=== PATIENT | female | born 1950 | race Two or more races ===

== ENCOUNTER 2024-06-03 13:19 | Inpatient (IN) | payer OTHER ==
[~2024-06-03] VITALS: Ht 157.5 cm; Wt 113.7 kg
--- NOTE | 2024-06-03 13:47 | ED.PDOC ---
History of Present Illness HPI Comments 74 y/o morbidly obese F, with a Hx of HLD, HTN, and kidney stones, presents with c/o right-flank pain and hematuria, today. Patient reports receiving a call from her PCP, advising her to go to the ED after endorsing on sudden and unprovoked onset of pain, this morning. Patient comments on having hematuria for the past 3x months, with inconclusive findings on underlying cause with current outpatient workup. She reports no further relevant information, such as recent injuries, sick contact, or travel, with exception to FMHx of stroke and Hodgkin's. Patient denies any nausea, vomiting, fever, chills, or other associated symptoms or modifiers at this time. Time Seen by MD: 13:30 Reviewed Notes: Nurses Notes, Medications, Allergies Allergies: Uncoded Allergies: IV CONTRAST (Allergy, Unknown, 06/03/24) Information Source: Patient Mode of Arrival: Ambulatory Severity: Moderate Timing: Hours Duration: Since onset Prehospital treatment: None Past Medical History PAST MEDICAL HISTORY: High Lipids, HTN, Kidney Stones Past Medical History (Other): morbid obesity Surgical History (Other): kidney stones removal surgerical proceedure SERVICE COORDINATOR History: Denies all SERVICE COORDINATOR Hx Family History Family History: Reviewed,noncontributory to illness, No family hx of DM, No family hx of Heart conchis, No family hx of HTN, No family hx ofKidney conchis, No family hx of Liver conchis, No family hx of Lung conchis, Family hx of Cancer (Hodgkin's), Family hx of stroke Social History Smoker: Non-Smoker Alcohol: Denies ETOH Use Drugs: Denies Drug Use Lives In: Home Constitutional: denies: chills, diaphoresis, fatigue, fever, malaise, sweats, weakness, others EENTM: denies: blurred vision, double vision, ear bleeding, ear discharge, ear drainage, ear pain, ear ringing, eye pain, eye redness, hearing loss, mouth pain, mouth swelling, nasal discharge, nose bleeding, nose congestion, nose pain, photophobia, tearing, throat pain, throat swelling, voice changes, others Respiratory: denies: cough, hemoptysis, orthopnea, SOB at rest, shortness of breath, SOB with excertion, stridor, wheezing, others Cardiovascular: denies: chest pain, dizzy spells, diaphoresis, Dyspnea on exertion, edema, irregular heart beat, left arm pain, lightheadedness, palpitations, PND, syncope, others Gastrointestinal: denies: abdomen distended, abdominal pain, blood streaked bowels, constipated, diarrhea, dysphagia, difficulty swallowing, hematemesis, melena, nausea, poor appetite, poor fluid intake, rectal bleeding, rectal pain, vomiting, others Genitourinary: reports: flank pain, hematuria; denies: abnormal vagina bleeding, burning, dyspareunia, dysuria, frequency, incontinence, pain, , vagina discharge, urgency, others Neurological: denies: dizziness, fainting, headache, left sided numbness, left sided weakness, numbness, paresthesia, pre-existing deficit, right sided numbness, right sided weakness, seizure, speech problems, tingling, tremors, weakness, others Musculoskeletal: denies: back pain, gout, joint pain, joint swelling, muscle pain, muscle stiffness, neck pain, others Integumetry: denies: bruises, change in color, change in hair/nails, dryness, laceration, lesions, lumps, rash, wounds, others Allergic/Immunocompromised: denies: Difficulty Healing, Frequent Infections, Hives, Itching, others Hematologic/Lymphatic: denies: anemia, blood clots, easy bleeding, easy bruising, swollen glands, others Endocrine: denies: excessive hunger, excessive sweating, excessive thirst, excessive urination, flushing, intolerance to cold, intolerance to heat, unexplained weight gain, unexplained weight loss, others Psychiatric: denies: anxiety, bipolar disorder, depression, hopeless, panic disorder, schizophrenia, sleepless, suicidal, others All Other Systems: Reviewed and Negative Physical Exam General Appearance: Moderate Distress HEENT: Normal ENT Inspection, Pharynx Normal, TMs Normal Neck: Full Range of Motion, Non-Tender, Normal, Normal Inspection Respiratory: Chest Non-Tender, Lungs Clear, No Accessory Muscle Use, No Respiratory Distress, Normal Breath Sounds Cardiovascular: No Edema, No JVD, No Murmur, No Gallop, Normal Peripheral Pulses, Regular Rate/Rhythm Breast Exam: Deferred Gastrointestinal: No Organomegaly, Non Tender, No Pulsatile Mass, Normal Bowel Sounds, Soft Genitalia: Deferred Pelvic: Deferred Rectal: Deferred Extremities: No calf tenderness, Normal capillary refill, Normal inspection, Normal range of motion, Non-tender, No pedal edema Musculoskeletal : Location: Left Extremity Location: Back Apperance: Tenderness: Moderate Neurologic: Alert, casino floor runner II-XII nml as Tested, No Motor Deficits, Normal Affect, Normal Mood, No Sensory Deficits Cerebellar Function: Normal Reflexes: Normal Skin: Dry, Normal Color, Warm Lymphatic: No Adenopathy Was a procedure done? Was a procedure done?: No Differential Dx Considerations may include: Nephrolithiasis, pyelonephritis, cystitis, musculoskeletal pain, cholelithiasis, cholecystitis, ovarian cysts, ovarian torsion, among others X-Ray, Labs, Meds, VS Vital Signs Date Time Temp Pulse Resp B/P (MAP) Pulse Ox O2 Delivery O2 Flow Rate FiO2 06/03/24 13:25 98.3 91 20 118/52 (74) 94 98.3 Lab Test 06/03/24 14:05 06/03/24 13:34 Range/Units White Blood Count 9.9 4.4-10.8 10^3/uL Red Blood Count 5.08 4.0-5.20 10^6/uL Hemoglobin 15.7 12.2-16.2 g/dL Hematocrit 46.1 H 36.0-46.0 % Mean Corpuscular Volume 90.8 80.0-100.0 fL Mean Corpuscular Hemoglobin 30.9 28.0-32.0 pg Mean Corpuscular Hemoglobin Concent 34.0 32.0-36.0 g/dL Red Cell Distribution Width 13.3 11.8-14.3 % Platelet Count 352 140-450 10^3/uL Mean Platelet Volume 7.5 6.9-10.8 fL Neutrophils (%) (Auto) 50.0 37.0-80.0 % Lymphocytes (%) (Auto) 34.9 10.0-50.0 % Monocytes (%) (Auto) 9.8 0.0-12.0 % Eosinophils (%) (Auto) 4.2 0.0-7.0 % Basophils (%) (Auto) 1.1 0.0-2.0 % Neutrophils # (Auto) 4.9 1.6-8.6 10 ^3/uL Lymphocytes # (Auto) 3.4 0.4-5.4 10 ^3/uL Monocytes # (Auto) 1.0 0-1.3 10 ^3/uL Eosinophils # (Auto) 0.4 0-0.8 10 ^3/uL Basophils # (Auto) 0.1 0-0.2 10 ^3/uL Nucleated Red Blood Cells 0.0 % Sodium Level 140 136-145 mmol/L Potassium Level 4.4 3.5-5.1 mmol/L Chloride Level 102 98-107 mmol/L Carbon Dioxide Level 28 20-31 mmol/L Anion Gap 10 5-15 Blood Urea Nitrogen 33 H 9-23 mg/dL Creatinine 1.51 H 0.550-1.02 mg/dL Glomerular Filtration Rate Calc 37 >90 mL/min BUN/Creatinine Ratio 21.9 H 10.0-20.0 Serum Glucose 108 H 74-106 mg/dL Calcium Level 11.1 H 8.7-10.4 mg/dL Urine Color Light-orange Yellow Urine Clarity Turbid H Clear Urine pH 5.5 5.0-9.0 Urine Specific [place] 1.022 1.001-1.035 Urine Protein 1+ H Negative Urine Ketones Negative Negative Urine Blood 3+ H Negative /uL Urine Nitrite Negative Negative Urine Bilirubin Negative Negative Urine Urobilinogen Normal Negative mg/dL Urine Leukocyte Esterase 2+ Negative /uL Urine RBC 924 0 - 4 /hpf Urine Microscopic WBC 50 H 0-5 /HPF Urine Squamous Epithelial Cells Few <5 /hpf Urine Bacteria None seen None Seen /hpf Urine Mucus Few None Seen Urine Glucose Normal Normal mg/dL IV Hep-Lock was established The patient was being given a bolus of normal saline at 1 L The urine test is positive for blood as well as a UTI The patient will be started on Rocephin 1 g IV piggyback for the infection The patient was given medication IV for the kidney stones as well The CBC and chemistry panel are within normal limits except for the BUN of 33 and the creatinine of 1.51 A urology consult will be obtained The patient understands and agrees with the management We will continue to give the patient medication for any intractable pain Images Reviewed?: Images reviewed and evaluated by me Time of 1ST Reevaluation: 14:00 Reevaluation 1ST: Unchanged Time of 2ND Reevaluation: 17:56 Reevaluation 2ND: Improved Patient Education/Counseling: Diagnosis, Treatment, Prognosis Family Education/Counseling: No Family Present Departure 1 Departure Time of Disposition: 17:55 Impression: Primary Impression: Nephrolithiasis Additional Impression: Acute pyelonephritis Disposition: 09 ADMITTED INPATIENT Admit to: Med Surg Condition: Fair Critical Care Note Critical Care Time?: No Stability Stability form required: Yes Unstable for transfer: ED Physician Assesment (Clinical assesment) Heart Score Heart Score: Heart Score Response (Comments) Value History N/A 0 EKG N/A 0 Age N/A 0 Risk Factors N/A 0 Troponin N/A 0 Total 0 I personally scribed for CHARITY GRISSOM MD ([email or web address]) on 06/03/24 at 13:47. Electronically submitted by Je Taylor ([email or web address]). CHARITY GRISSOM MD Jun 03, 2024 13:47
--- NOTE | 2024-06-03 14:22 | DVH ---
Exam: CT CT AB PEL WO CON-NO ORAL OR IV History: right flank pain Comparison Study: None available at time of dictation. TECHNIQUE: Multidetector CT of the abdomen and pelvis without IV contrast. Axial, coronal and sagitta l multiplanar reformats were obtained from the axial data set by the technologist. Radiation Dose Information: CT Dose: CTDI volume is 27.16 mGy. Dose-length product is 1507.29 mGy*cm FINDINGS: Bibasilar atelectasis. Partially visualized heart is unremarkable. Mild hepatomegaly. Spleen, pancreas and right adrenal glands unremarkable. 2.7 cm left adrenal nodule measuring up to 18 Hounsfield units. Status post cholecystectomy. Multiple nonobstructing bilateral renal calculi, largest on the left of the lower pole measuring up t o 1 cm and largest on the right of the pelvis measuring up to 1.8 cm. Mild fat stranding adjacent to the right renal pelvis. Ureters and urinary bladder unremarkable. Uterus and adnexa unremarkable. Stomach is unremarkable. Small bowel loops are unremarkable. Appendix is not definitely visualized. N o pericecal inflammatory reaction to suggest acute appendicitis. Mild rectal wall thickening. Otherw ise, the large bowel is unremarkable. No evidence of intraperitoneal free air or free fluid. No evidence of aortic aneurysm. [id number] atherosclerotic calcification of the aorta and bilat eral iliacs. No significant lymphadenopathy. Soft tissues are unremarkable. Destructive osseous lesions are noted. IMPRESSION: Multiple bilateral nonobstructing calculus largest on the right over the renal pelvis measuring up to 1.8 cm. Mild fat stranding adjacent to the right renal pelvis which may be associated with the calcu ronda. Correlate for possible infectious process. No hydro nephrosis or obstructing ureteral calculus bilaterally. Mild rectal wall thickening which may be due to inadequate distention with mild proctitis not exclude d. Mild hepatomegaly. 2.7 cm left adrenal nodule. Adrenal protocol CT / MRI should be considered for further evaluation.
[2024-06-03 14:23] LABS: Basophils # (auto) 0.1 10 ^3/uL (0-0.2); Basophils % (auto) 1.1 % (0.0-2.0); Eosinophils # (auto) 0.4 10 ^3/uL (0-0.8); Eosinophils % (auto) 4.2 % (0.0-7.0); Hematocrit 46.1 % (36.0-46.0); Hemoglobin 15.7 g/dL (12.2-16.2); Lymphocytes # (auto) 3.4 10 ^3/uL (0.4-5.4); Lymphocytes % (auto) 34.9 % (10.0-50.0); Mean Corpuscular Hemoglobin 30.9 pg (28.0-32.0); Mean Corpuscular Volume 90.8 fL (80.0-100.0); Monocytes % (auto) 9.8 % (0.0-12.0); Neutrophils # (auto) 4.9 10 ^3/uL (1.6-8.6); Platelet Count (auto) 352 10^3/uL (140-450); Red Blood Cells 5.08 10^6/uL (4.0-5.20); Red Cell Distribution Width 13.3 % (11.8-14.3); White Blood Cell 9.9 10^3/uL (4.4-10.8)
[2024-06-03 14:37] LABS: Chloride 102 mmol/L (98-107); Potassium 4.4 mmol/L (3.5-5.1); Sodium 140 mmol/L (136-145)
[2024-06-03 14:38] LABS: Anion Gap 10 (5-15); Carbon Dioxide 28 mmol/L (20-31)
[2024-06-03 14:40] LABS: Calcium 11.1 mg/dL (8.7-10.4)
[2024-06-03 14:43] LABS: BUN/Creatinine Ratio 21.9 (10.0-20.0)
[2024-06-03 14:44] LABS: Blood Urea Nitrogen 33 mg/dL (9-23); Glucose 108 mg/dL (74-106)
[2024-06-03 15:26] LABS: Urine Bacteria None Seen /hpf (None Seen)
[2024-06-03 15:43] LABS: Urine Blood 3+ /uL (Negative); Urine Clarity Turbid (Clear); Urine Color Light-Orange (Yellow); Urine Mucus FEW (None Seen); Urine Protein, UAD 1+ (Negative); Urine Specific Gravity 1.022 (1.001-1.035); Urine Squamous Epithelial Cell FEW /hpf (<5); Urine Urobilinogen Normal (Negative); Urine WBC 50 /HPF (0-5); Urine pH 5.5 (5.0-9.0)
[2024-06-03 21:56] LABS: Total Protein 7.7 g/dL (5.7-8.2)
[2024-06-03 21:57] LABS: Bilirubin, Direct 0.2 mg/dL (<0.3); Bilirubin, Total 0.6 mg/dL (0.2-1.0)
[2024-06-03 22:01] LABS: Albumin 4.9 g/dL (3.2-4.8)
--- NOTE | 2024-06-03 22:03 | DVHHPRES ---
History of Present Illness Resident Creating Document: GATO SMITH RESIDENT History of Present Illness Patient is a 74-year-old female with past medical history of hypertension, dyslipidemia, nephrolithiasis, sciatica, depression, who came in due to flank pain and hematuria. According to the patient, for the past 4 months she has been experiencing right-sided flank pain along with visible hematuria. Patient notes that she saw her PCP on Monday where she completed lab work, on video appointment with her PCP today she was told to come to the ER as her kidney numbers were out of range. Patient notes that she frequently takes ibuprofen and Aleve 200 mg at home, every 5-6 hours for the last 4-6 months. On review of systems patient is complaining of fatigue, nausea and urinary frequency. CT abdomen pelvis showed multiple bilateral nonobstructing calculus, largest on the right side 1.8 cm along with mild fat stranding on the right side. Patient was also noted to have a 2.7 cm left adrenal nodule. Past Medical History Hypertension, dyslipidemia, sciatica, depression, nephrolithiasis Past Surgical History Cholecystectomy, appendectomy, lithotripsy Smoke: No ALCOHOL: none Drugs: None Past Social History Allergies: Codeine, IV contrast/dyes Review of Systems Constitutional: Yes: Malaise; No: Fever, Chills, Sweats, Weakness, Other Eyes: No: Pain, Vision change, Conjunctivae inflammation, Eyelid inflammation, Other, Redness ENT: No: Ear pain, Ear discharge, Nose pain, Nose discharge, Nose congestion, Mouth pain, Mouth swelling, Throat pain, Throat swelling, Other Respiratory: No: Cough, Dry, Shortness of breath, SOB with excertion, Wheezing, Hemoptysis, Pleuritic Pain, Sputum, Wheezing, Other Cardiovascular: No: Chest Pain, Palpitations, Orthopnea, Paroxysmal Noc. Dyspnea, Edema, Lt Headedness, Other Gastrointestinal: Nausea; No: Vomiting, Abdominal Pain, Diarrhea, Constipation, Melena, Hematochezia, Other Genitourinary: No Dysuria; Frequency; No Incontinence, No Hematuria, No Retention, No Other Musculoskeletal: No: other, neck pain, shoulder pain, arm pain, back pain, hand pain, leg pain, foot pain Skin: No: Rash, Lesions, Jaundice, Bruising, Other Neurological: No: Weakness, Numbness, Incoordination, Change in speech, Confusion, Seizures, Other Allergies: Uncoded Allergies: IV CONTRAST (Allergy, Unknown, 06/03/24) Exam Vital Signs Vital Signs Date Time Temp Pulse Resp B/P (MAP) Pulse Ox O2 Delivery O2 Flow Rate FiO2 06/03/24 13:25 98.3 91 20 118/52 (74) 94 98.3 General Appearance: Alert, Oriented X3, Cooperative, mild distress HEENT: Atraumatic, PERRLA, EOMI, Other (Dry mucous membrane) Respiratory: Clear to auscultation, Normal air movement Cardiovascular: Regular rate, Normal S1, Normal S2 Abdominal: Normal bowel sounds, Other (Right-sided costovertebral angle tenderness to palpation) Extremities: No clubbing, Normal pulses Skin: No significant lesion Neuro: Normal speech Psych/Mental Status: Mental status NL, Mood NL Labs/Xrays Labs Test 06/03/24 14:05 06/03/24 13:34 Range/Units White Blood Count 9.9 4.4-10.8 10^3/uL Red Blood Count 5.08 4.0-5.20 10^6/uL Hemoglobin 15.7 12.2-16.2 g/dL Hematocrit 46.1 H 36.0-46.0 % Mean Corpuscular Volume 90.8 80.0-100.0 fL Mean Corpuscular Hemoglobin 30.9 28.0-32.0 pg Mean Corpuscular Hemoglobin Concent 34.0 32.0-36.0 g/dL Red Cell Distribution Width 13.3 11.8-14.3 % Platelet Count 352 140-450 10^3/uL Mean Platelet Volume 7.5 6.9-10.8 fL Neutrophils (%) (Auto) 50.0 37.0-80.0 % Lymphocytes (%) (Auto) 34.9 10.0-50.0 % Monocytes (%) (Auto) 9.8 0.0-12.0 % Eosinophils (%) (Auto) 4.2 0.0-7.0 % Basophils (%) (Auto) 1.1 0.0-2.0 % Neutrophils # (Auto) 4.9 1.6-8.6 10 ^3/uL Lymphocytes # (Auto) 3.4 0.4-5.4 10 ^3/uL Monocytes # (Auto) 1.0 0-1.3 10 ^3/uL Eosinophils # (Auto) 0.4 0-0.8 10 ^3/uL Basophils # (Auto) 0.1 0-0.2 10 ^3/uL Nucleated Red Blood Cells 0.0 % Sodium Level 140 136-145 mmol/L Potassium Level 4.4 3.5-5.1 mmol/L Chloride Level 102 98-107 mmol/L Carbon Dioxide Level 28 20-31 mmol/L Anion Gap 10 5-15 Blood Urea Nitrogen 33 H 9-23 mg/dL Creatinine 1.51 H 0.550-1.02 mg/dL Glomerular Filtration Rate Calc 37 >90 mL/min BUN/Creatinine Ratio 21.9 H 10.0-20.0 Serum Glucose 108 H 74-106 mg/dL Calcium Level 11.1 H 8.7-10.4 mg/dL Total Bilirubin 0.6 0.2-1.0 mg/dL Direct Bilirubin 0.2 <0.3 mg/dL Aspartate Amino Transferase (AST) 26 13-40 U/L Alanine Aminotransferase (ALT) 25 7-40 U/L Alkaline Phosphatase 69 46-116 U/L Total Protein 7.7 5.7-8.2 g/dL Albumin 4.9 H 3.2-4.8 g/dL Urine Color Light-orange Yellow Urine Clarity Turbid H Clear Urine pH 5.5 5.0-9.0 Urine Specific [place] 1.022 1.001-1.035 Urine Protein 1+ H Negative Urine Ketones Negative Negative Urine Blood 3+ H Negative /uL Urine Nitrite Negative Negative Urine Bilirubin Negative Negative Urine Urobilinogen Normal Negative mg/dL Urine Leukocyte Esterase 2+ Negative /uL Urine RBC 924 0 - 4 /hpf Urine Microscopic WBC 50 H 0-5 /HPF Urine Squamous Epithelial Cells Few <5 /hpf Urine Bacteria None seen None Seen /hpf Urine Mucus Few None Seen Urine Glucose Normal Normal mg/dL Assessment/Plan Assessment/Plan Acute pyelonephritis Nephrolithiasis with largest calculus on the right side 1.8 cm Multiple bilateral nonobstructing calculus Acute complicated UTI - CT abdomen pelvis: Multiple bilateral nonobstructing calculus largest on the right over the renal pelvis measuring up to 1.8 cm. Mild fat stranding adjacent to the right renal pelvis which may be associated with the calculus. Correlate for possible infectious process. No hydro nephrosis or obstructing ureteral calculus bilaterally. Mild rectal wall thickening which may be due to inadequate distention with mild proctitis not excluded. Mild hepatomegaly. 2.7 cm left adrenal nodule. Adrenal protocol CT / MRI should be considered for further evaluation. - renal ultrasound: Possible left renal atrophy. There are bilateral renal stones. There are 2 stones in the right kidney and a stone in the inferior pole of the left kidney. 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 Velasquez Plan discussed with: Patient, Other (RN) My Orders Orders - GATO SMITH RESIDENT Procedure Category Date Status Time Admit ADMIT 06/03/24 Transmitted 20:45 Allergies KELLY 06/03/24 Transmitted 20:45 Code Status CODE 06/03/24 Transmitted 20:45 Ondansetron Hcl PHA 06/03/24 Transmitted (Zofran) 20:45 Complete Blood Count LAB 06/04/24 Verified 04:00 Comprehensive LAB 06/04/24 Verified Metabolic Panel 04:00 Cardiac DIET 06/04/24 Transmitted Diet-2gna,Lofat,Lochol Breakfast Condition: Unstable KELLY 06/03/24 Transmitted 20:45 Sequential KELLY 06/03/24 Transmitted Compression Device Notify Md Of Changes KELLY 06/03/24 Transmitted From Base 20:45 NS PHA 06/03/24 Transmitted 20:45 Tamsulosin PHA 06/04/24 Transmitted Hydrochloride (Flomax) 18:00 Tamsulosin PHA 06/03/24 Transmitted Hydrochloride (Flomax) 20:45 Ceftriaxone Ivpb PHA 06/04/24 Transmitted Rocephin 09:00 Thyroid Stimulating LAB 06/03/24 Transmitted Hormone 20:45 Electrocardigram EKG 06/03/24 Transmitted 20:45 Drug Screen LAB 06/03/24 Transmitted 20:45 Vitamin B12 LAB 06/03/24 Transmitted 20:45 Prothrombin Time W/ LAB 06/03/24 Transmitted INR 20:45 Kidney US 06/03/24 Transmitted 20:45 Urine Protein LAB 06/03/24 Transmitted 20:45 Urine Creatinine LAB 06/03/24 Transmitted 20:45 Date of Service: Jun 03, 2024 Billing Provider: MONICA VELASQUEZ MD Common Visit Codes: 82319-IBHGABU INP/OBS CARE (HIGH) Secondary Visit Codes: 99693-OFTPNJGL CARE PLAN 30 MINUTES GATO SMITH RESIDENT Jun 03, 2024 22:03 MONICA VELASQUEZ MD Jun 04, 2024 10:32
[2024-06-03 22:40] LABS: Protein, Urine 159.6 mg/dL (1-14)
--- NOTE | 2024-06-03 22:53 | DVH ---
INDICATION: nephrolithiasis TECHNIQUE: Multiple real-time sonographic images of the kidneys and bladder were obtained. COMPARISON: None FINDINGS: There is a 1.05 x 1.05 x 0.65 cm stone in the inferior pole collecting system of the right kidney. Th ere is an interpolar stone measuring 0.65 x 0.75 x 0.5 cm in the right kidney. In the inferior pole of the left kidney there is a 0.75 by 0.6 x 0.3 cm inferior pole stone. Bladder has a volume of 26.4 mL. Right kidney measures 11.5 cm in length left kidney measures 10.2 cm in length. Kidneys both appear t o have atrophied cortices. Left renal cortex measures 9.9 mm and right renal cortex measures 19.5 mm IMPRESSION: 1. Possible left renal atrophy. There are bilateral renal stones . There are 2 stones in the right k idney and a stone in the inferior pole of the left kidney.
[2024-06-03 23:04] LABS: Creatinine, Urine 243.8 mg/dL (30.0-125.0)
[2024-06-03 23:07] LABS: INR 1.03 (0.9-1.15); Prothrombin Time 10.9 sec (9.3-11.8)
[2024-06-03 23:10] LABS: Amphetamine Screen, Urine Neg (NEGATIVE); Barbiturate Scree,Urine Neg (NEGATIVE); Benzodiazephine Screen, Urine Neg (NEGATIVE); Cannabinoid Screen, Urine Neg (NEGATIVE); Cocaine Screen, Urine Neg (NEGATIVE); Opiate Scree,Urine Neg (NEGATIVE); Phencyclidine Screen, Urine Neg (NEGATIVE)
[2024-06-03] MEDS: KETOROLAC TROMETH 30 MG/ML 1ML VIAL IV ONE (23:39)
[2024-06-03] MEDS: SODIUM CHLORIDE 0.9% 1,000 ML IV ONE (23:39)
[2024-06-03] MEDS: cefTRIAXone 1GM/50ML D5W 50 ML IV ONE (23:39)
[2024-06-03] MEDS: TAMSULOSIN HYDROCHLORIDE 0.4 MG CAP PO ONE (23:40)
[2024-06-03] MEDS: SODIUM CHLORIDE 0.9% 500 ML IV ONE (23:40)
[2024-06-04 07:51] VITALS: PULSE 101; RESP 16; O2SAT 94
[2024-06-04] MEDS: MORPHINE SULFATE INJ 2 MG/ml SYRG IV PRN (07:55)
[2024-06-04] MEDS: ONDANSETRON HCL 4 MG/2 ML VIAL IV PRN (07:55)
[2024-06-04 09:16] LABS: Alanine Aminotransferase 24 U/L (7-40); Alkaline Phosphatase 69 U/L (46-116); Anion Gap 11 (5-15); Aspartate Aminotransferase 30 U/L (13-40); BUN/Creatinine Ratio 18.9 (10.0-20.0); Calcium 10.1 mg/dL (8.7-10.4); Carbon Dioxide 26 mmol/L (20-31); Chloride 105 mmol/L (98-107); Potassium 3.8 mmol/L (3.5-5.1); Sodium 142 mmol/L (136-145); Total Protein 7.9 g/dL (5.7-8.2)
[2024-06-04 09:17] LABS: Bilirubin, Total 0.4 mg/dL (0.2-1.0)
[2024-06-04 09:18] LABS: Basophils # (auto) 0.1 10 ^3/uL (0-0.2); Basophils % (auto) 0.9 % (0.0-2.0); Eosinophils # (auto) 0.3 10 ^3/uL (0-0.8); Eosinophils % (auto) 2.6 % (0.0-7.0); Hematocrit 43.9 % (36.0-46.0); Hemoglobin 14.8 g/dL (12.2-16.2); Lymphocytes # (auto) 2.9 10 ^3/uL (0.4-5.4); Lymphocytes % (auto) 24.9 % (10.0-50.0); Mean Corpuscular Hgb Conc. 33.8 g/dL (32.0-36.0); Mean Corpuscular Volume 91.7 fL (80.0-100.0); Monocytes # (auto) 1.1 10 ^3/uL (0-1.3); Monocytes % (auto) 9.4 % (0.0-12.0); Neutrophils # (auto) 7.2 10 ^3/uL (1.6-8.6); Neutrophils % (auto) 62.2 % (37.0-80.0); Nucleated Red Blood Cells % 0.3 %; Platelet Count (auto) 337 10^3/uL (140-450); Red Blood Cells 4.78 10^6/uL (4.0-5.20); Red Cell Distribution Width 13.9 % (11.8-14.3); White Blood Cell 11.6 10^3/uL (4.4-10.8)
[2024-06-04] MEDS: cefTRIAXone 1GM/50ML D5W 50 ML IV SCH (09:20)
[2024-06-04 09:28] LABS: Blood Urea Nitrogen 35 mg/dL (9-23); Glucose 130 mg/dL (74-106)
--- NOTE | 2024-06-04 10:20 | DVHPNRES ---
Progress Note Date Seen: Jun 04, 2024 Resident Creating Document: GIO WHYTE RESIDENT Medical Necessity Reason Pt with a Central, PICC or Fol: No Subjective Review of Systems Patient is a 74-year-old female with past medical history of hypertension, dyslipidemia, nephrolithiasis, sciatica, depression, who came in due to flank pain and hematuria. According to the patient, for the past 4 months she has been experiencing right-sided flank pain along with visible hematuria. Patient notes that she saw her PCP on Monday where she completed lab work, on video appointment with her PCP today she was told to come to the ER as her kidney numbers were out of range. Patient notes that she frequently takes ibuprofen and Aleve 200 mg at home, every 5-6 hours for the last 4-6 months. Patient was seen and examined on the bedside. she is alert oriented x3. Complaint of pain in the right flank region and lightheadedness. No other active complaint Constitutional: No: Fever, Chills, Sweats, Weakness, Malaise, Other Eyes: No: Pain, Vision change, Conjunctivae inflammation, Eyelid inflammation, Other, Redness ENT: No: Ear pain, Ear discharge, Nose pain, Nose discharge, Nose congestion, Mouth pain, Mouth swelling, Throat pain, Throat swelling, Other Respiratory: Shortness of breath, improving No: Cough, Dry,Wheezing, Hemoptysis, Pleuritic Pain, Sputum, Wheezing, Other Cardiovascular: No: Chest Pain, Palpitations, Orthopnea, Paroxysmal Noc. Dyspnea, Edema, Lt Headedness, Other Gastrointestinal: Rt flank pain, No Nausea, Vomiting, Diarrhea, Constipation, Melena, Hematochezia, Other Musculoskeletal: No: other, neck pain, shoulder pain, arm pain, back pain, hand pain, leg pain, foot pain Neurological:; Lt headedness, No: Weakness, Numbness, Incoordination, Change in speech, Confusion, Seizures Objective vital signs Vital Sign Date Time Temp Pulse Resp B/P (MAP) Pulse Ox O2 Delivery O2 Flow Rate FiO2 06/04/24 09:31 94 19 117/76 (90) 93 06/04/24 07:51 Room Air* 0 21 06/04/24 07:51 98.0 98.0 Total Intake and Output 06/03/24 06/03/24 06/04/24 14:59 22:59 06:59 Intake Total 1050 ml Balance 1050 ml medications Current Medications Medications Dose Ordered Sig/Zoltan Route Start Time Stop Time Status Last Admin Dose Admin Ondansetron HCl 4 mg Q4HP PRN IV 06/03/24 20:45 06/04/24 07:55 4 MG Ceftriaxone Sodium 50 ml @ 100 mls/hr DAILY@09 IV 06/04/24 09:00 06/04/24 09:20 100 MLS/HR Acetaminophen 325 mg Q4HP PRN PO 06/03/24 22:15 Morphine Sulfate 2 mg Q6HPRN PRN IV 06/03/24 23:15 06/04/24 07:55 2 MG Tamsulosin HCl 0.4 mg QPM PO 06/04/24 18:00 Ergocalciferol 50,000 unit Q7D PO 06/04/24 10:00 UNV Examination Physical examination: General Appearance: Alert, Oriented X3, Cooperative, mild distress HEENT: Atraumatic, PERRLA, EOMI, Mucous membrane moist/pink Respiratory: Clear to auscultation, Normal air movement Cardiovascular: Regular rate, Normal S1, Normal S2, No murmurs, no chest wall tenderness Abdominal: Rt CVA tederness, Normal bowel sounds, Soft, No hepatospenomegaly, No masses Extremities: No clubbing, No cyanosis, No edema, Normal pulses, No tenderness/swelling Skin: No rashes, No breakdown, No significant lesion Neuro: Use cane, Normal speech, Strength at 5/5 X4 ext, Normal tone, Sensation intact, grossly intact cranial nerves. Psych/Mental Status: Mental status NL, Mood NL laboratory and microbiology Laboratory Tests 06/04/24 08:28 Test 06/04/24 08:28 Range/Units Serum Glucose 130 H 74-106 mg/dL Labs and/or images reviewed: Labs reviewed by me, Image(s) reviewed by me Problem List/Assessment/Plan Problem List/Assessment/Plan Assessment and Plan: # Possible acute pyelonephritis # Nephrolithiasis with largest calculus on the right side 1.8 cm # Rectal wall thickening, with mild proctitis, rule out malignancy # Multiple bilateral nonobstructing calculus # Acute complicated UTI - CT abdomen pelvis: Multiple bilateral nonobstructing calculus largest on the right over the renal pelvis measuring up to 1.8 cm. Mild fat stranding adjacent to the right renal pelvis which may be associated with the calculus. Correlate for possible infectious process. No hydro nephrosis or obstructing ureteral calculus bilaterally. Mild rectal wall thickening which may be due to inadequate distention with mild proctitis not excluded. Mild hepatomegaly. 2.7 cm left adrenal nodule. Adrenal protocol CT / MRI should be considered for further evaluation. - renal ultrasound: Possible left renal atrophy. There are bilateral renal stones. There are 2 stones in the right kidney and a stone in the inferior pole of the left kidney. - IV ceftriaxone daily - IV ondansetron as needed - Tamsulosin 0.4 mg daily - Urology evaluated the patient and recommended Mag 3 Renal Scan with split renal function and lasix washout and Cystoscopy with right ureteral stent placement and right ESWL TBA # DAVID, likely hemodynamically mediated/VMN on probable CKD; FeNa 0.3% # Possible analgesic nephropathy - IV N/S 1L bolus. - Monitor BMP # Hypertensive heart disease and possible chronic diastolic heart failure # Dyslipidemia - Holding home antihypertensives owing to soft blood pressure # Vitamin D deficiency - Vitamin-D 96228 units Q 7D # Left-sided 2.7 cm adrenal nodule - explained to patient in detail - outpatient follow up recommended Goal of care discussed with the patient for more than 20 minutes full code Plan discussed with Dr. Velasquez Plan discussed with: Patient, Other My Orders My Orders Orders - GIO WHYTE Procedure Category Date Status Time B-Type Natriuretic LAB 06/04/24 In Process Peptide 08:28 Ergocalciferol PHA 06/04/24 Logged (Vitamin D 50,000 10:00 Sodium Chloride 0.9% PHA 06/04/24 Logged 10:15 Date of Service: Jun 04, 2024 Billing Provider: MNOICA VELASQUEZ MD Common Visit Codes: [id number] INP/OBS CARE(HIGH) GIO WHYTE Jun 04, 2024 10:20 MONICA VELASQUEZ MD Jun 04, 2024 15:33
--- NOTE | 2024-06-04 10:21 | DVHINCON2 ---
Date of service: Jun 04, 2024 Referring Physician Hospitalist Reason for Consultation Hematuria History of Present Illness 74 y/o morbidly obese F, with a Hx of HLD, HTN, and kidney stones, presents with c/o right-flank pain and hematuria, today. Patient reports receiving a call from her PCP, advising her to go to the ED after endorsing on sudden and unprovoked onset of pain, this morning. Patient comments on having hematuria for the past 3x months, with inconclusive findings on underlying cause with current outpatient workup. She reports no further relevant information, such as recent injuries, sick contact, or travel, with exception to FMHx of stroke and Hodgkin's. Patient denies any nausea, vomiting, fever, chills, or other associated symptoms or modifiers at this time. Reviewed Notes: Nurses Notes, Medications, Allergies Allergies: Uncoded Allergies: IV CONTRAST (Allergy, Unknown, 06/03/24) Information Source: Patient Mode of Arrival: Ambulatory Severity: Moderate Timing: Hours Duration: Since onset Prehospital treatment: None Past Medical History High Lipids, HTN, Kidney Stones Past Medical History (Other): morbid obesity Past Surgical History kidney stones removal surgerical proceedure CLINICAL SPECIALIST MEDICAL DEVICE History: Denies all CLINICAL SPECIALIST MEDICAL DEVICE Hx Allergies: Uncoded Allergies: IV CONTRAST (Allergy, Unknown, 06/03/24) Current Medications Current Medications Medications (Trade) Dose Ordered Sig/Zoltan Route PRN Reason Start Time Stop Time Status Last Admin Ondansetron HCl (Zofran) 4 mg Q4HP PRN IV NAUSEA / VOMITING 06/03/24 20:45 06/04/24 07:55 Tamsulosin HCl (Flomax) 0.4 mg QPM PO 06/04/24 18:00 06/04/24 00:37 DC Ceftriaxone Sodium 50 ml @ 100 mls/hr DAILY@09 IV 06/04/24 09:00 06/04/24 09:20 Acetaminophen (Tylenol Tablet) 325 mg Q4HP PRN PO PAIN SCALE 1-3 OR TEMP>100.4 06/03/24 22:15 Morphine Sulfate 2 mg Q6HPRN PRN IV SEVERE PAIN (7-10 PAIN SCALE) 06/03/24 23:15 06/04/24 07:55 Tamsulosin HCl (Flomax) 0.4 mg QPM PO 06/04/24 18:00 Ergocalciferol (Vitamin D 50,000 Unit) 50,000 unit Q7D PO 06/04/24 10:00 UNV Review of Systems Constitutional: denies: chills, diaphoresis, fatigue, fever, malaise, sweats, weakness, others EENTM: denies: blurred vision, double vision, ear bleeding, ear discharge, ear drainage, ear pain, ear ringing, eye pain, eye redness, hearing loss, mouth pain, mouth swelling, nasal discharge, nose bleeding, nose congestion, nose pain, photophobia, tearing, throat pain, throat swelling, voice changes, others Respiratory: denies: cough, hemoptysis, orthopnea, SOB at rest, shortness of breath, SOB with excertion, stridor, wheezing, others Cardiovascular: denies: chest pain, dizzy spells, diaphoresis, Dyspnea on exertion, edema, irregular heart beat, left arm pain, lightheadedness, palpitations, PND, syncope, others Gastrointestinal: denies: abdomen distended, abdominal pain, blood streaked bowels, constipated, diarrhea, dysphagia, difficulty swallowing, hematemesis, melena, nausea, poor appetite, poor fluid intake, rectal bleeding, rectal pain, vomiting, others Genitourinary: reports: flank pain, hematuria; denies: abnormal vagina bleedin g, burning, dyspareunia, dysuria, frequency, incontinence, pain, , vagina discharge, urgency, others Neurological: denies: dizziness, fainting, headache, left sided numbness, left sided weakness, numbness, paresthesia, pre-existing deficit, right sided numbness, right sided weakness, seizure, speech problems, tingling, tremors, weakness, others Musculoskeletal: denies: back pain, gout, joint pain, joint swelling, muscle pain, muscle stiffness, neck pain, others Integumetry: denies: bruises, change in color, change in hair/nails, dryness, laceration, lesions, lumps, rash, wounds, others Allergic/Immunocompromised: denies: Difficulty Healing, Frequent Infections, Hi ves, Itching, others Hematologic/Lymphatic: denies: anemia, blood clots, easy bleeding, easy bruising, swollen glands, others Endocrine: denies: excessive hunger, excessive sweating, excessive thirst, excessive urination, flushing, intolerance to cold, intolerance to heat, unexplained weight gain, unexplained weight loss, others Psychiatric: denies: anxiety, bipolar disorder, depression, hopeless, panic disorder, schizophrenia, sleepless, suicidal, others All Other Systems: Reviewed and Negative Vital Signs Vital Signs Date Time Temp Pulse Resp B/P (MAP) Pulse Ox O2 Delivery O2 Flow Rate FiO2 06/04/24 09:31 94 19 117/76 (90) 93 06/04/24 07:51 Room Air* 0 21 06/04/24 07:51 98.0 98.0 Physical Exam General Appearance: Moderate Distress HEENT: Normal ENT Inspection, Pharynx Normal, TMs Normal Neck: Full Range of Motion, Non-Tender, Normal, Normal Inspection Respiratory: Chest Non-Tender, Lungs Clear, No Accessory Muscle Use, No Respiratory Distress, Normal Breath Sounds Cardiovascular: No Edema, No JVD, No Murmur, No Gallop, Normal Peripheral Pulses, Regular Rate/Rhythm Breast Exam: Deferred Gastrointestinal: No Organomegaly, Non Tender, No Pulsatile Mass, Normal Bowel Sounds, Soft Genitalia: Deferred Pelvic: Deferred Rectal: Deferred Extremities: No calf tenderness, Normal capillary refill, Normal inspection, Normal range of motion, Non-tender, No pedal edema Musculoskeletal : Location: Left Extremity Location: Back Apperance: Tenderness: Moderate Neurologic: Alert, english professor II-XII nml as Tested, No Motor Deficits, Normal Affect, Normal Mood, No Sensory Deficits Cerebellar Function: Normal Reflexes: Normal Skin: Dry, Normal Color, Warm Lymphatic: No Adenopathy Labs/Diagnostic Data Labs Test 06/04/24 09:30 06/04/24 08:28 06/03/24 22:38 06/03/24 14:05 Range/Units POC Glucose 173 H 70-106 mg/dl White Blood Count 11.6 H 4.4-10.8 10^3/uL Red Blood Count 4.78 4.0-5.20 10^6/uL Hemoglobin 14.8 12.2-16.2 g/dL Hematocrit 43.9 36.0-46.0 % Mean Corpuscular Volume 91.7 80.0-100.0 fL Mean Corpuscular Hemoglobin 31.0 28.0-32.0 pg Mean Corpuscular Hemoglobin Concent 33.8 32.0-36.0 g/dL Red Cell Distribution Width 13.9 11.8-14.3 % Platelet Count 337 140-450 10^3/uL Mean Platelet Volume 7.5 6.9-10.8 fL Neutrophils (%) (Auto) 62.2 37.0-80.0 % Lymphocytes (%) (Auto) 24.9 10.0-50.0 % Monocytes (%) (Auto) 9.4 0.0-12.0 % Eosinophils (%) (Auto) 2.6 0.0-7.0 % Basophils (%) (Auto) 0.9 0.0-2.0 % Neutrophils # (Auto) 7.2 1.6-8.6 10 ^3/uL Lymphocytes # (Auto) 2.9 0.4-5.4 10 ^3/uL Monocytes # (Auto) 1.1 0-1.3 10 ^3/uL Eosinophils # (Auto) 0.3 0-0.8 10 ^3/uL Basophils # (Auto) 0.1 0-0.2 10 ^3/uL Nucleated Red Blood Cells 0.3 % Sodium Level 142 136-145 mmol/L Potassium Level 3.8 3.5-5.1 mmol/L Chloride Level 105 98-107 mmol/L Carbon Dioxide Level 26 20-31 mmol/L Anion Gap 11 5-15 Blood Urea Nitrogen 35 H 9-23 mg/dL Creatinine 1.85 H 0.550-1.02 mg/dL Glomerular Filtration Rate Calc 29 >90 mL/min BUN/Creatinine Ratio 18.9 10.0-20.0 Serum Glucose 130 H 74-106 mg/dL Hemoglobin A1c 5.7 <5.7 % A1C Calcium Level 10.1 8.7-10.4 mg/dL Total Bilirubin 0.4 0.2-1.0 mg/dL Aspartate Amino Transferase (AST) 30 13-40 U/L Alanine Aminotransferase (ALT) 24 7-40 U/L Alkaline Phosphatase 69 46-116 U/L Total Protein 7.9 5.7-8.2 g/dL Albumin 5.0 H 3.2-4.8 g/dL Vitamin D 25-Hydroxy 13.3 L 30.0-100 ng/mL Prothrombin Time 10.9 9.3-11.8 sec Prothrombin Time INR 1.03 0.9-1.15 Vitamin B12 Level 373 211-911 pg/mL Thyroid Stimulating Hormone (TSH) 1.51 0.55-4.78 uIU/mL Direct Bilirubin 0.2 <0.3 mg/dL Test 06/03/24 13:34 Range/Units Urine Color Light-orange Yellow Urine Clarity Turbid H Clear Urine pH 5.5 5.0-9.0 Urine Specific Adams 1.022 1.001-1.035 Urine Protein 1+ H Negative Urine Ketones Negative Negative Urine Blood 3+ H Negative /uL Urine Nitrite Negative Negative Urine Bilirubin Negative Negative Urine Urobilinogen Normal Negative mg/dL Urine Leukocyte Esterase 2+ Negative /uL Urine RBC 924 0 - 4 /hpf Urine Microscopic WBC 50 H 0-5 /HPF Urine Squamous Epithelial Cells Few <5 /hpf Urine Bacteria None seen None Seen /hpf Urine Mucus Few None Seen Urine Creatinine 243.80 H 30.0-125.0 mg/dL Urine Sodium 60 40-220 mmol/L Urine Glucose Normal Normal mg/dL Urine Total Protein 159.6 H 1-14 mg/dL Urine Opiates Screen Neg NEGATIVE Urine Fentanyl Screen Neg NEGATIVE Urine Barbiturates Screen Neg NEGATIVE Urine Phencyclidine Screen Neg NEGATIVE Urine Amphetamines Screen Neg NEGATIVE Urine Benzodiazepines Screen Neg NEGATIVE Urine Cocaine Screen Neg NEGATIVE Urine Cannabinoids Screen Neg NEGATIVE PATIENT: JAZMIN JAMESCCT: [id number] UNIT: [id number] : 1950 LOC: ER ROOM / BED: / AGE / SEX: 74 / F ADM STATUS: REG ER SERVICE 1334 ORDERING PHYSICIAN: CHARITY GRISSOM MD PROCEDURE(s): ABPL - CT AB PEL WO CON-NO ORAL OR IV REASON: right flank pain ORDER NUMBER(s): [id number], ACCESSION NUMBER(s): [id number] Exam: CT CT AB PEL WO CON-NO ORAL OR IV History: right flank pain Comparison Study: None available at time of dictation. TECHNIQUE: Multidetector CT of the abdomen and pelvis without IV contrast. Axial, coronal and sagittal multiplanar reformats were obtained from the axial data set by the technologist. Radiation Dose Information: CT Dose: CTDI volume is 27.16 mGy. Dose-length product is 1507.29 mGy*cm FINDINGS: Bibasilar atelectasis. Partially visualized heart is unremarkable. Mild hepatomegaly. Spleen, pancreas and right adrenal glands unremarkable. 2.7 cm left adrenal nodule measuring up to 18 Hounsfield units. Status post cholecystectomy. Multiple nonobstructing bilateral renal calculi, largest on the left of the lower pole measuring up to 1 cm and largest on the right of the pelvis measuring up to 1.8 cm. Mild fat stranding adjacent to the right renal pelvis. Ureters and urinary bladder unremarkable. Uterus and adnexa unremarkable. Stomach is unremarkable. Small bowel loops are unremarkable. Appendix is not definitely visualized. No pericecal inflammatory reaction to suggest acute appendicitis. Mild rectal wall thickening. Otherwise, the large bowel is unremarkable. No evidence of intraperitoneal free air or free fluid. No evidence of aortic aneurysm. [id number] atherosclerotic calcification of the aorta and bilateral iliacs. No significant lymphadenopathy. Soft tissues are unremarkable. Destructive osseous lesions are noted. IMPRESSION: Multiple bilateral nonobstructing calculus largest on the right over the renal pelvis measuring up to 1.8 cm. Mild fat stranding adjacent to the right renal pelvis which may be associated with the calculus. Correlate for possible infectious process. No hydro nephrosis or obstructing ureteral calculus bilaterally. Mild rectal wall thickening which may be due to inadequate distention with mild proctitis not excluded. Mild hepatomegaly. 2.7 cm left adrenal nodule. Adrenal protocol CT / MRI should be considered for further evaluation. ATED BY: MARIMAR RAY DO DICTATED DATE/TIME: 06/03/24 1419 SIGNED BY: MARIMAR RAY DO SIGNED DATE/TIME: 06/03/24 1419 CC: Assessment Hematuria CKD Left renal atrophy Bilateral renal stones, R>L Plan/Recommendation Mag 3 Renal Scan with split renal function and lasix washout Cystoscopy with right ureteral stent placement and right ESWL TBA Plan discussed with: Patient, Other SHANNON HARRIS MD Jun 04, 2024 10:21
[2024-06-04] MEDS: ERGOCALCIFEROL 50,000 UNIT(1.25MG) CAP PO SCH (12:02)
[2024-06-04] MEDS: SODIUM CHLORIDE 0.9% 1,000 ML IV ONE (12:03)
[2024-06-04] MEDS: FUROSEMIDE 40 MG/4 ML VIAL IV ONE (13:00)
[2024-06-04] MEDS: FUROSEMIDE 40 MG/4 ML VIAL ONE (13:54)
--- NOTE | 2024-06-04 15:48 | DVH ---
Procedure: IN NM MAG3 RENAL SCAN Exam Date: 06/04/2024 01:30 PM. Clinical History: atrophy of left kidney Comparison Study: Ultrasound and CT dated 06/03/2024. Nuclear Medicine Renal Scan with Lasix. Technique: Following the intravenous administration of mCi of technetium 99m labeled MAG-3 , flow im ages were acquired in one second intervals. This was followed by functional imaging of the kidneys in the posterior projection which were obtained at 20 seconds intervals reconstructed into 2 minute frames for a total of 34 minutes. 20 mg of Lasix were given IV at the 10 minute abril. Flow curves and functional renogram curves were generated. Split function data were generated from the first th ree minutes of the study. Findings: The flow study reveals prompt visualization of both kidneys with normal flow bilaterally. The kidneys are normal size, location and contour. The functional data was obtained with the renal pelvis included in the region of interest: Left: Peak time on the left is 16 minutes. Peak to 1/2 peak on the left is 23 minutes. Diuretic T 1/2 on the left is 20 minutes. Right: Peak time on the right is 25 minutes. Peak to 1/2 peak on the right is 17 minutes. Diuretic T 1/2 on the right is 17 minutes. Split function is 25 % on the left and 75 % on the right. IMPRESSION: Split function is 25 % on the left and 75 % on the right. Functional right kidney with delay in excretion.
[2024-06-04] MEDS ORDERED: TAMSULOSIN HYDROCHLORIDE 0.4 MG CAP PO SCH (18:00)
[2024-06-04 18:10] VITALS: PULSE 101; PULSE 86; RESP 16; RESP 18; O2SAT 94
[2024-06-04] MEDS: MANNITOL FTV 25% 12.5 GM/50 ML 50 ML IV ONE (18:29)
[2024-06-04] MEDS: TAMSULOSIN HYDROCHLORIDE 0.4 MG CAP PO SCH (18:41)
[2024-06-04 19:30] VITALS: PULSE 86; RESP 15; O2SAT 96
[2024-06-04 21:39] VITALS: BP 123/61; PULSE 95; RESP 20; TEMP 97.8; O2SAT 97
[2024-06-04] MEDS ORDERED: GABA-1250 PO (22:38)
[2024-06-04] MEDS ORDERED: ATOR20TA50 PO (22:38)
[2024-06-04] MEDS ORDERED: LOSA100T25 PO (22:38)
[2024-06-04] MEDS ORDERED: DIPH50TA9 PO (22:38)
[2024-06-04] MEDS ORDERED: SERT-206 PO (22:38)
[2024-06-04] MEDS ORDERED: NAPR220C PO (23:05)
[2024-06-04] MEDS ORDERED: IBUP-1453 PO (23:06)
[2024-06-05] VITALS (8 sets, daily range): BP systolic 100–133; BP diastolic 48–72; PULSE 73–100; RESP 18–20; TEMP 98–98.6; O2SAT 95–99
[2024-06-05 06:33] LABS: Basophils # (auto) 0.1 10 ^3/uL (0-0.2); Basophils % (auto) 0.8 % (0.0-2.0); Eosinophils # (auto) 0.4 10 ^3/uL (0-0.8); Eosinophils % (auto) 4.8 % (0.0-7.0); Hematocrit 38.4 % (36.0-46.0); Hemoglobin 12.8 g/dL (12.2-16.2); Lymphocytes # (auto) 1.7 10 ^3/uL (0.4-5.4); Mean Corpuscular Hemoglobin 30.3 pg (28.0-32.0); Mean Corpuscular Hgb Conc. 33.3 g/dL (32.0-36.0); Mean Corpuscular Volume 91.1 fL (80.0-100.0); Monocytes # (auto) 0.9 10 ^3/uL (0-1.3); Monocytes % (auto) 11.1 % (0.0-12.0); Neutrophils # (auto) 4.8 10 ^3/uL (1.6-8.6); Neutrophils % (auto) 61.3 % (37.0-80.0); Platelet Count (auto) 280 10^3/uL (140-450); Red Blood Cells 4.22 10^6/uL (4.0-5.20); Red Cell Distribution Width 13.7 % (11.8-14.3); White Blood Cell 7.8 10^3/uL (4.4-10.8)
[2024-06-05 06:49] LABS: Anion Gap 9 (5-15); Carbon Dioxide 27 mmol/L (20-31); Chloride 103 mmol/L (98-107); Sodium 139 mmol/L (136-145)
[2024-06-05 06:50] LABS: Calcium 9.2 mg/dL (8.7-10.4)
[2024-06-05 06:55] LABS: BUN/Creatinine Ratio 21.1 (10.0-20.0); Glucose 105 mg/dL (74-106)
[2024-06-05 06:58] LABS: Blood Urea Nitrogen 34 mg/dL (9-23); Potassium 3.4 mmol/L (3.5-5.1)
[2024-06-05] MEDS: diphenhdrAMINE HCL 50 MG/1 ML VL IV PRN (08:51)
[2024-06-05] MEDS ORDERED: PNEUMOCOCCAL VACC POLYS 25 MCG/0.5 ML VIAL IM ONE (09:00)
--- NOTE | 2024-06-05 09:26 | DVHPN2 ---
Progress Note - Dictate Date Seen: Jun 05, 2024 Medical Necessity Reason Pt with a Central, PICC or Fol: No Medical Necessity Reason Renal colic vital signs Vital Sign Date Time Temp Pulse Resp B/P (MAP) Pulse Ox O2 Delivery O2 Flow Rate FiO2 06/05/24 05:00 98.2 93 20 100/52 (68) 99 98.2 06/04/24 21:39 Nasal Cannula* 2 28 Total Intake and Output 06/04/24 06/04/24 06/05/24 15:00 23:00 07:00 Intake Total 50 ml 400 ml Balance 50 ml 400 ml medications Current Medications Medications Dose Ordered Sig/Zoltan Route Start Time Stop Time Status Last Admin Dose Admin Ondansetron HCl 4 mg Q4HP PRN IV 06/03/24 20:45 06/04/24 16:17 4 MG Ceftriaxone Sodium 50 ml @ 100 mls/hr DAILY@09 IV 06/04/24 09:00 06/05/24 08:51 100 MLS/HR Acetaminophen 325 mg Q4HP PRN PO 06/03/24 22:15 Tamsulosin HCl 0.4 mg QPM PO 06/04/24 18:00 06/04/24 18:41 0.4 MG Ergocalciferol 50,000 unit Q7D PO 06/04/24 10:00 06/04/24 12:02 50,000 UNIT Diphenhydramine HCl 25 mg Q6HP PRN IV 06/05/24 07:00 06/05/24 08:51 25 MG objective PATIENT: JAZMIN JAMESCCT: [id number] UNIT: [id number] : 1950 LOC: OVERFLOW ROOM / BED: [address] [place] [address] AGE / SEX: 74 / F ADM STATUS: ADM IN SERVICE 1024 ORDERING PHYSICIAN: SHANNON HARRIS MD PROCEDURE(s): KDF - NM MAG3 RENAL SCAN REASON: atrophy of left kidney ORDER NUMBER(s): [id number], ACCESSION NUMBER(s): [id number] Procedure: NM NM MAG3 RENAL SCAN Exam Date: 06/04/2024 01:30 PM. Clinical History: atrophy of left kidney Comparison Study: Ultrasound and CT dated 06/03/2024. Nuclear Medicine Renal Scan with Lasix. Technique: Following the intravenous administration of mCi of technetium 99m labeled MAG-3 , flow images were acquired in one second intervals. This was followed by functional imaging of the kidneys in the posterior projection which were obtained at 20 seconds intervals reconstructed into 2 minute frames for a total of 34 minutes. 20 mg of Lasix were given IV at the 10 minute abril. Flow curves and functional renogram curves were generated. Split function data were generated from the first three minutes of the study. Findings: The flow study reveals prompt visualization of both kidneys with normal flow bilaterally. The kidneys are normal size, location and contour. The functional data was obtained with the renal pelvis included in the region of interest: Left: Peak time on the left is 16 minutes. Peak to 1/2 peak on the left is 23 minutes. Diuretic T 1/2 on the left is 20 minutes. Right: Peak time on the right is 25 minutes. Peak to 1/2 peak on the right is 17 minutes. Diuretic T 1/2 on the right is 17 minutes. Split function is 25 % on the left and 75 % on the right. IMPRESSION: Split function is 25 % on the left and 75 % on the right. Functional right kidney with delay in excretion. laboratory and microbiology Laboratory Tests 06/05/24 05:59 Test 06/05/24 05:59 Range/Units Serum Glucose 105 74-106 mg/dL Problem List Right renal calculi Right delayed renal excretion Atrophic left kidney with 25% function Assessment/Plan Cystoscopy with right ureteral stent placement and right ESWL tomorrow NPO after midnight Plan discussed with: SHANNON Rutherford MD Jun 05, 2024 09:25
--- NOTE | 2024-06-05 12:52 | DVHPN2 ---
Progress Note - Dictate Date Seen: Jun 05, 2024 Medical Necessity Reason Pt with a Central, PICC or Fol: No Subjective Patient complaining of pain in the left hand at the location of her PIV. Patient otherwise denies any flank or abdominal pain. Patient denies any nausea, vomiting, chest pain, shortness of breath, fever, or chills. Patient was seen by urology and planning for stent placement tomorrow. vital signs Vital Sign Date Time Temp Pulse Resp B/P (MAP) Pulse Ox O2 Delivery O2 Flow Rate FiO2 06/05/24 08:30 98.3 89 18 101/48 (65) 96 98.3 06/05/24 08:00 Room Air* 0 21 Total Intake and Output 06/04/24 06/04/24 06/05/24 15:00 23:00 07:00 Intake Total 50 ml 400 ml Balance 50 ml 400 ml medications Current Medications Medications Dose Ordered Sig/Zoltan Route Start Time Stop Time Status Last Admin Dose Admin Ondansetron HCl 4 mg Q4HP PRN IV 06/03/24 20:45 06/04/24 16:17 4 MG Ceftriaxone Sodium 50 ml @ 100 mls/hr DAILY@09 IV 06/04/24 09:00 06/05/24 08:51 100 MLS/HR Acetaminophen 325 mg Q4HP PRN PO 06/03/24 22:15 Tamsulosin HCl 0.4 mg QPM PO 06/04/24 18:00 06/04/24 18:41 0.4 MG Ergocalciferol 50,000 unit Q7D PO 06/04/24 10:00 06/04/24 12:02 50,000 UNIT Diphenhydramine HCl 25 mg Q6HP PRN IV 06/05/24 07:00 06/05/24 08:51 25 MG objective GEN: A&Ox4, NAD, Morbidly Obese Female HEENT: NC/AT CV: S1S2+, RRR, no rubs, gallops, or murmurs Lungs: Clear to auscultation bilaterally Abd: Obese, soft, NT, ND, + BS LE: No LE edema laboratory and microbiology Laboratory Tests 06/05/24 05:59 Test 06/05/24 05:59 Range/Units Serum Glucose 105 74-106 mg/dL Problem List Acute Diagnosis: Complicated UTI Obstructive Uropathy with largest calculus on the right side 1.8 cm Rectal wall thickening - incidental finding Left adrenal nodule. Secondary Diagnosis: Chronic Kidney Disease Hypertensive Heart Disease Vitamin D Deficiency Morbid Obesity Dyslipidemia Assessment/Plan - Rocephin Abx day 2, send out urine culture, Start continuous IV fluids with NS 0.9% at 100cc/Hr - ESWL with right ureteral stent placement scheduled for tomorrow, continue Flomax daily, appreciate urology recommendations - monitor daily renal functions, patient has CKD stage 3b, patient nuclear renal scan confirms 25% left renal function and 75% right renal function. - patient will require outpatient Adrenal protocol CT / MRI for left 2.7cm adrenal nodule evaluation. - patient will need outpatient GI referral for malignancy rule out given thickened rectal wall seen on CT imaging. Patient last colonoscopy many years ago. - Vitamin D deficiency, continue Vitamin-D 24587 units Q7D Plan discussed with: Patient MARION LAWRENCE MD Jun 05, 2024 12:52
[2024-06-05] MEDS: SODIUM CHLORIDE 0.9% 1,000 ML IV SCH (13:53)
[2024-06-05] MEDS: POTASSIUM CHL 20 Meq TABLET PO ONE (13:53)
[2024-06-06] VITALS (11 sets, daily range): BP systolic 118–157; BP diastolic 65–79; PULSE 77–108; RESP 13–20; TEMP 98.4–98.8; O2SAT 91–97
[2024-06-06 06:58] LABS: Anion Gap 8 (5-15); Carbon Dioxide 27 mmol/L (20-31); Chloride 106 mmol/L (98-107); Potassium 3.8 mmol/L (3.5-5.1); Sodium 141 mmol/L (136-145)
[2024-06-06 07:00] LABS: Calcium 9.4 mg/dL (8.7-10.4)
[2024-06-06 07:04] LABS: BUN/Creatinine Ratio 21.6 (10.0-20.0); Glucose 89 mg/dL (74-106)
[2024-06-06 07:06] LABS: Blood Urea Nitrogen 24 mg/dL (9-23)
[2024-06-06 07:14] LABS: Basophils # (auto) 0.1 10 ^3/uL (0-0.2); Eosinophils # (auto) 0.4 10 ^3/uL (0-0.8); Eosinophils % (auto) 6.3 % (0.0-7.0); Hematocrit 36.3 % (36.0-46.0); Hemoglobin 12.3 g/dL (12.2-16.2); Lymphocytes # (auto) 2.2 10 ^3/uL (0.4-5.4); Lymphocytes % (auto) 33.1 % (10.0-50.0); Mean Corpuscular Hemoglobin 31.1 pg (28.0-32.0); Mean Corpuscular Hgb Conc. 33.9 g/dL (32.0-36.0); Mean Corpuscular Volume 91.6 fL (80.0-100.0); Monocytes # (auto) 0.7 10 ^3/uL (0-1.3); Monocytes % (auto) 11.1 % (0.0-12.0); Neutrophils # (auto) 3.1 10 ^3/uL (1.6-8.6); Neutrophils % (auto) 48.5 % (37.0-80.0); Nucleated Red Blood Cells % 0.1 %; Platelet Count (auto) 269 10^3/uL (140-450); Red Blood Cells 3.96 10^6/uL (4.0-5.20); Red Cell Distribution Width 13.4 % (11.8-14.3); White Blood Cell 6.5 10^3/uL (4.4-10.8)
[2024-06-06] MEDS ORDERED: LEVO750T40 PO ×2 (12:42→15:20)
[2024-06-06] MEDS ORDERED: ceFAZolin 2 GM/D5W50ml 50 ML IV ONE (13:16)
--- NOTE | 2024-06-06 14:10 | DVHNC2 ---
Procedure - OPERATIVE REPORT Pre-op. Diagnosis: 1.8 cm renal pelvic Stone - RIGHT Hydronephrosis - RIGHT Flank Pain - RIGHT Post-op. Diagnosis: Same as pre-op diagnosis Operation: Extracorporeal Shockwave Lithotripsy - RIGHT Cystoscopy, Ureteral stent placement - RIGHT Anesthesia: General Indications: Informed Consent: Options were discussed. Treatments can include conservative therapy, Extra-corporeal shockwave therapy (ESWL), Ureteroscopy with laser lithotripsy vs extraction, PCNL (percutaneous nephrolithotomy); with or without the use of Stents or retrograde pyelography. Corresponding advantages and disadvantages were also discussed. Questions were addressed. Patient wishes to proceed with right ESWL and cystoscopy with right ureteral stent placement. Risks and benefits of the surgery were reviewed with patient which include but are not limited to infection, bleeding, urosepsis, renal hemorrhage/hematoma formation, ureteral perforation, ureteral stricture formation and need for further surgery if stone does not break, ureteral obstruction from stone fragments, cardiac arrthymia and risks of anesthesia. Despite these risks, patient wishes to proceed with the surgery. Details of Procedure: Under satisfactory anesthesia, the patient was positioned on the lithotripsy table. Using fluoroscopy the stone was localized. Patient was then positioned in the dorsal lithotomy and cystoscopy was performed. The right ureteral orifice was cannulated with a sensoer tip guidewire and advanced into the right renal pelvis under fluroscopy. A [address] right Ureteral stent was then placed over the wire under Fluoroscopic and cystoscopic guidance. The bladder was emptied and the cystoscope was taken out. We then positioned the patient accordingly, identified the stone and began extra-corporeal shockwave lithotripsy. Starting at low energy levels, shockwave treatment was commenced. The energy level was gradually increased and stone was fragmented. The patient was then taken off the lithotripsy table and sent to recovery room in stable condition. Specimens: None Complications: None Findings: Stone Laterality: Right renal pelvic stone 1.8 cm Shocks Delivered: 2400 Max Power settin Fragmentation Quality: Well Ureteral stent size & length: five [place] by 24 cm polaris loop ureteral stent Notes: The right ureteral stent will be removed when stone has completely resolved. She will need to undergo left ESWL with stent removal in 3-4 weeks' time SHANNON HARRIS MD Jun 06, 2024 14:10
[2024-06-06] MEDS ORDERED: HYDROmorphone HCL 2 MG/ML VL/or syr ONE (14:11)
[2024-06-06] MEDS ORDERED: fentaNYL CITRATE 100 MCG/2 ML VL ONE (14:11)
[2024-06-06] MEDS ORDERED: DexAMETHasone SOD PHOS 10MG/1ML VIAL INJ ONE (14:12)
[2024-06-06] MEDS ORDERED: LIDOCAINE 2% (LOCAL ANESTH.) PF 5ml SDV ONE (14:12)
[2024-06-06] MEDS ORDERED: MIDAZOLAM HCL 2MG/2ML 2ml VIAL (1mg/ml) ONE (14:12)
[2024-06-06] MEDS ORDERED: ePHEDrine SULFATE 50 MG/ML AMP ONE (14:12)
[2024-06-06] MEDS ORDERED: GLYCOPYRROLATE 0.2 MG/ML 1ML VIAL ONE (14:12)
[2024-06-06] MEDS ORDERED: ROCURONIUM 10MG/ML 10ML VIAL IV ONE (14:12)
[2024-06-06] MEDS ORDERED: ETOMIDATE (2MG/ML) 20ML VIAL IV ONE (14:12)
[2024-06-06] MEDS ORDERED: ONDANSETRON HCL 4 MG/2 ML VIAL ONE (14:12)
[2024-06-06] MEDS ORDERED: KETAMINE 50mg/ML 1ml syringe ONE (14:54)
--- NOTE | 2024-06-06 15:23 | DVHDS2 ---
Discharge Summary Date of Admission Jun 03, 2024 at 20:45 Date of Discharge: Jun 06, 2024 Labs/Diagnostic Data: Laboratory Results Test 06/06/24 06:27 06/04/24 09:30 06/04/24 08:28 06/03/24 22:38 White Blood Count 6.5 10^3/uL (4.4-10.8) Red Blood Count 3.96 10^6/uL (4.0-5.20) Hemoglobin 12.3 g/dL (12.2-16.2) Hematocrit 36.3 % (36.0-46.0) Mean Corpuscular Volume 91.6 fL (80.0-100.0) Mean Corpuscular Hemoglobin 31.1 pg (28.0-32.0) Mean Corpuscular Hemoglobin Concent 33.9 g/dL (32.0-36.0) Red Cell Distribution Width 13.4 % (11.8-14.3) Platelet Count 269 10^3/uL (140-450) Mean Platelet Volume 7.4 fL (6.9-10.8) Neutrophils (%) (Auto) 48.5 % (37.0-80.0) Lymphocytes (%) (Auto) 33.1 % (10.0-50.0) Monocytes (%) (Auto) 11.1 % (0.0-12.0) Eosinophils (%) (Auto) 6.3 % (0.0-7.0) Basophils (%) (Auto) 1.0 % (0.0-2.0) Neutrophils # (Auto) 3.1 10 ^3/uL (1.6-8.6) Lymphocytes # (Auto) 2.2 10 ^3/uL (0.4-5.4) Monocytes # (Auto) 0.7 10 ^3/uL (0-1.3) Eosinophils # (Auto) 0.4 10 ^3/uL (0-0.8) Basophils # (Auto) 0.1 10 ^3/uL (0-0.2) Nucleated Red Blood Cells 0.1 % Sodium Level 141 mmol/L (136-145) Potassium Level 3.8 mmol/L (3.5-5.1) Chloride Level 106 mmol/L (98-107) Carbon Dioxide Level 27 mmol/L (20-31) Anion Gap 8 (5-15) Blood Urea Nitrogen 24 mg/dL (9-23) Creatinine 1.11 mg/dL (0.550-1.02) Glomerular Filtration Rate Calc 53 mL/min (>90) BUN/Creatinine Ratio 21.6 (10.0-20.0) Serum Glucose 89 mg/dL (74-106) Calcium Level 9.4 mg/dL (8.7-10.4) POC Glucose 173 mg/dl (70-106) Hemoglobin A1c 5.7 % A1C (<5.7) Total Bilirubin 0.4 mg/dL (0.2-1.0) Aspartate Amino Transferase (AST) 30 U/L (13-40) Alanine Aminotransferase (ALT) 24 U/L (7-40) Alkaline Phosphatase 69 U/L (46-116) B-Type Natriuretic Peptide 4.65 pg/mL (0-100) Total Protein 7.9 g/dL (5.7-8.2) Albumin 5.0 g/dL (3.2-4.8) Vitamin D 25-Hydroxy 13.3 ng/mL (30.0-100) Prothrombin Time 10.9 sec (9.3-11.8) Prothrombin Time INR 1.03 (0.9-1.15) Vitamin B12 Level 373 pg/mL (211-911) Thyroid Stimulating Hormone (TSH) 1.51 uIU/mL (0.55-4.78) Test 06/03/24 14:05 06/03/24 13:34 Direct Bilirubin 0.2 mg/dL (<0.3) Urine Color Light-orange (Yellow) Urine Clarity Turbid (Clear) Urine pH 5.5 (5.0-9.0) Urine Specific [place] 1.022 (1.001-1.035) Urine Protein 1+ (Negative) Urine Ketones Negative (Negative) Urine Blood 3+ /uL (Negative) Urine Nitrite Negative (Negative) Urine Bilirubin Negative (Negative) Urine Urobilinogen Normal mg/dL (Negative) Urine Leukocyte Esterase 2+ /uL (Negative) Urine RBC 924 /hpf (0 - 4) Urine Microscopic WBC 50 /HPF (0-5) Urine Squamous Epithelial Cells Few /hpf (<5) Urine Bacteria None seen /hpf (None Seen) Urine Mucus Few (None Seen) Urine Creatinine 243.80 mg/dL (30.0-125.0) Urine Sodium 60 mmol/L (40-220) Urine Glucose Normal mg/dL (Normal) Urine Total Protein 159.6 mg/dL (1-14) Urine Opiates Screen Neg (NEGATIVE) Urine Fentanyl Screen Neg (NEGATIVE) Urine Barbiturates Screen Neg (NEGATIVE) Urine Phencyclidine Screen Neg (NEGATIVE) Urine Amphetamines Screen Neg (NEGATIVE) Urine Benzodiazepines Screen Neg (NEGATIVE) Urine Cocaine Screen Neg (NEGATIVE) Urine Cannabinoids Screen Neg (NEGATIVE) Other Laboratory Tests 06/06/24 06:27 Brief Hx & Hospital Course: During her hospitalization. Patient is a 74-year-old female with past medical history of hypertension, hyperlipidemia, nephrolithiasis, who presented with complaints of flank pain and hematuria. Patient also notes he has been taking presents for further pain over the past 4 to 6 months. She presented due to the recommendation of her PCP due to decreased renal function. CT abdomen pelvis showed multiple bilateral nonobstructing calculus with the largest on the right side measuring 1.8 cm with mild fat stranding. Patient was also noted to have a 2.7 centimeter adrenal nodule. Patient was evaluated by urology. Patient underwent stent placement and shockwave lithotripsy. Her pain was well-managed. She was treated with ceftriaxone during her hospitalization. Urine culture showed less than 10,000 CFU per milliliter. Laboratory findings did not reveal any leukocytosis prior to discharge. Patient's BUN/creatinine was noted to be 15/1.04 prior to discharge. Patient complained of incontinence. She notes he previously has a history of incontinence requiring diapers but now after procedure she notes that she cannot even make it to the bathroom. Patient was started on oxybutynin 5 mg p.o. twice daily. Patient is continue receiving IV antibiotics ceftriaxone 1 g IV daily for 1 week. Patient is to be transferred to SNF for further IV antibiotics. Chest x-ray was done due to patient requiring oxygen overnight. Chest x-ray was normal. Patient is to follow-up with urology regarding stent removal. Patient was counseled extensively on the need for outpatient imaging regarding her adrenal adenoma 2.7 cm. Patient is also to be referred to GI for rectal wall thickening and for colonoscopy evaluation. Patient was aware and agreement with. [facility] case management arrange follow-up with GI and urology. Patient discharged in stable condition. Condition at Discharge: Good Final Diagnosis/Problems List Nephrolithiasis Secondary Diagnosis: Complicated UTI (Pyelonephritis) Morbid Obesity DAVID likely due to NSAID Use Vitamin D Deficiency Acute Respiratory Failure-Resolved Adrenal Adenoma 2.7cm Discharge Disposition: Home Discharge Instruct/Medications Diet: Consistent carbohydrate Activity: Light activity Follow Up/Referral: Follow up with urology. Medications: Levofloxacin for UTI. Take Tylenol over the counter for pain. Avoid ibuprofen and naproxen due to kidney function affected. Discharge Statement: "Patient was advised to return to the ER or call 911 if any headaches, dizziness, shortness of breath, chest pain, abdominal pain, bleeding, fevers, or worsening of medical condition. Patient was counseled about treatment plan, medications, possible side effects, patientverbalized understanding. All questions were answered to the best of my ability. This discharge took greater then 30 minutes in planning, reviewing documentation, counseling the patient, and discussing with other team members." ASSESSMENT ASSESSMENT Assessment Nephrolithiasis HILDA LOOMIS DO Jun 06, 2024 15:23
[2024-06-06] MEDS: CIPROFLOXACIN 400MG/200ML 200 ML IV ONE (15:30)
[2024-06-06] MEDS ORDERED: SUGAMMADEX 200mg/2ml Vial (100MG/ML) IV ONE (15:37)
[2024-06-06] MEDS ORDERED: ACCU-CHEK COMFORT CURVE STRIP VI ONE (16:45)
[2024-06-06] MEDS: ONDANSETRON HCL 4 MG/2 ML VIAL IV ONE (17:45)
[2024-06-06] MEDS ORDERED: hydrALAZINE HCL 20 MG/ML VL IV PRN (18:30)
[2024-06-06] MEDS: hydrALAZINE HCL 20 MG/ML VL IV PRN (18:52)
--- NOTE | 2024-06-06 19:22 | DVH ---
Date: 06/06/2024 04:30 PM Examination: XY KUB ABDOMEN SINGLE VIEW History: stent placement Comparison: None TECHNIQUE: Frontal views of the abdomen was obtained. FINDINGS: Bowel gas pattern is unremarkable. Right double-J ureteral stent The lung bases are unremarkable. No acute osseous abnormality identified. IMPRESSION: Nonobstructive bowel gas pattern.
[2024-06-07 01:00] VITALS: BP 144/86; PULSE 114; RESP 18; TEMP 97.5; O2SAT 95
[2024-06-07 05:00] VITALS: BP 140/68; PULSE 99; RESP 18; TEMP 98; O2SAT 97
[2024-06-07 06:15] VITALS: O2SAT 96
[2024-06-07 08:00] LABS: Basophils # (auto) 0.1 10 ^3/uL (0-0.2); Basophils % (auto) 0.6 % (0.0-2.0); Eosinophils # (auto) 0 10 ^3/uL (0-0.8); Hematocrit 38.2 % (36.0-46.0); Hemoglobin 12.9 g/dL (12.2-16.2); Lymphocytes # (auto) 0.8 10 ^3/uL (0.4-5.4); Lymphocytes % (auto) 7.5 % (10.0-50.0); Mean Corpuscular Hgb Conc. 33.9 g/dL (32.0-36.0); Mean Corpuscular Volume 91.4 fL (80.0-100.0); Monocytes # (auto) 0.3 10 ^3/uL (0-1.3); Neutrophils # (auto) 9.4 10 ^3/uL (1.6-8.6); Neutrophils % (auto) 88.9 % (37.0-80.0); Nucleated Red Blood Cells % 0.2 %; Platelet Count (auto) 294 10^3/uL (140-450); Red Blood Cells 4.18 10^6/uL (4.0-5.20); Red Cell Distribution Width 13.7 % (11.8-14.3); White Blood Cell 10.6 10^3/uL (4.4-10.8)
[2024-06-07 08:10] VITALS: PULSE 94; RESP 20; O2SAT 96
[2024-06-07 08:11] LABS: Calcium 9.3 mg/dL (8.7-10.4); Chloride 104 mmol/L (98-107); Potassium 4.7 mmol/L (3.5-5.1); Sodium 141 mmol/L (136-145)
[2024-06-07 08:12] LABS: Anion Gap 10 (5-15); Carbon Dioxide 27 mmol/L (20-31)
[2024-06-07 08:17] LABS: Blood Urea Nitrogen 15 mg/dL (9-23); Glucose 121 mg/dL (74-106)
[2024-06-07 08:27] LABS: BUN/Creatinine Ratio 14.4 (10.0-20.0)
[2024-06-07] MEDS: ACETAMINOPHEN 325 MG TAB PO PRN (08:55)
[2024-06-07 09:00] VITALS: BP 117/60; PULSE 94; RESP 20; TEMP 98; O2SAT 92
[2024-06-07] MEDS: OXYBUTYNIN CHL 5 MG TAB PO SCH (11:19)
--- NOTE | 2024-06-07 11:38 | DVH ---
CHEST RADIOGRAPH Indication: Acute resp failure Technique: Single frontal view of the chest was obtained Comparison: None FINDINGS: Lines and Tubes: None Lungs: No focal consolidation. Pleura: No effusion. No pneumothorax. Cardiomediastinal contours: Unremarkable Bones: No acute osseous abnormality. IMPRESSION: No acute cardiopulmonary disease.
[2024-06-07 13:00] VITALS: BP 131/56; PULSE 70; RESP 20; TEMP 98.3; O2SAT 96
== END 2024-06-07 16:25 | DRG 659 ==
LOC: ER 13:25 → OVERFLOW 20:45 → EAST 06-04 21:22
PROVIDERS: ADMIT Student in an Organized Health Care Education/Training Program; ATTEND Hospitalist
PROC: 5A09357 Assistance with Respiratory Ventilation, Less than 24 Consecutive Hours, Continuous Positive Airway Pressure (ICD-10-PCS; 2024-06-06)
PROC: 0T768DZ Dilation of Right Ureter with Intraluminal Device, Via Natural or Artificial Opening Endoscopic (ICD-10-PCS; principal; 2024-06-06 14:47)
PROC: 0TF3XZZ Fragmentation in Right Kidney Pelvis, External Approach (ICD-10-PCS; 2024-06-06 14:47)
DX: N20.0 Calculus of kidney (principal); J96.00 Acute respiratory failure, unspecified whether with hypoxia or hypercapnia; N17.0 Acute kidney failure with tubular necrosis; N10 Acute pyelonephritis; Z68.41 Body mass index [BMI] 40.0-44.9, adult; D35.00 Benign neoplasm of unspecified adrenal gland; E78.5 Hyperlipidemia, unspecified; E55.9 Vitamin D deficiency, unspecified; T39.395A Adverse effect of other nonsteroidal anti-inflammatory drugs [NSAID], initial encounter; N26.1 Atrophy of kidney (terminal); N18.32 Chronic kidney disease, stage 3b; I13.10 Hypertensive heart and chronic kidney disease without heart failure, with stage 1 through stage 4 chronic kidney disease, or unspecified chronic kidney disease; E27.8 Other specified disorders of adrenal gland; E66.01 Morbid (severe) obesity due to excess calories; Z87.442 Personal history of urinary calculi; Z82.3 Family history of stroke; Z90.49 Acquired absence of other specified parts of digestive tract; Z79.899 Other long term (current) drug therapy; Y92.89 Other specified places as the place of occurrence of the external cause
CPT/HCPCS: 36415; 71045; 74018; 74176; 76775; 78707; 80048; 80053; 80076; 80307; 81001; 82306; 82570; 82607; 82962; 83036; 83880; 84156; 84300; 84443; 85025; 85610; 87086; 94660; 96365; 96375; G0378; J1100; J1885; J2003; J2250; J2405